=== PATIENT | female | born 2005 | race Two or more races ===

== ENCOUNTER 2023-10-21 15:21 | Emergency (ER) | payer OTHER ==
[~2023-10-21] VITALS: Ht 160 cm; Wt 65.9 kg
[2023-10-21 16:26] LABS: Basophils # (auto) 0 10 ^3/uL (0-0.2); Basophils % (auto) 0.2 % (0.0-2.0); Eosinophils # (auto) 0.1 10 ^3/uL (0-0.8); Eosinophils % (auto) 0.4 % (0.0-7.0); Hematocrit 37.1 % (36.0-46.0); Hemoglobin 12.4 g/dL (12.2-16.2); Lymphocytes # (auto) 1.2 10 ^3/uL (0.4-5.4); Lymphocytes % (auto) 9.7 % (10.0-50.0); Mean Corpuscular Hemoglobin 29.4 pg (28.0-32.0); Mean Corpuscular Hgb Conc. 33.4 g/dL (32.0-36.0); Mean Corpuscular Volume 87.9 fL (80.0-100.0); Monocytes # (auto) 0.5 10 ^3/uL (0-1.3); Monocytes % (auto) 3.9 % (0.0-12.0); Neutrophils # (auto) 10.8 10 ^3/uL (1.6-8.6); Neutrophils % (auto) 85.8 % (37.0-80.0); Red Blood Cells 4.23 10^6/uL (4.0-5.20); Red Cell Distribution Width 14.7 % (11.8-14.3); White Blood Cell 12.5 10^3/uL (4.4-10.8)
[2023-10-21 16:39] LABS: Anion Gap 8 (5-15); Carbon Dioxide 25 mmol/L (20-30); Chloride 102 mmol/L (98-107); Potassium 3.8 mmol/L (3.5-5.1); Sodium 135 mmol/L (136-145)
[2023-10-21 16:40] LABS: Calcium 10.1 mg/dL (8.7-10.4)
[2023-10-21 16:45] LABS: BUN/Creatinine Ratio 10.3 (10.0-20.0); Blood Urea Nitrogen 7 mg/dL (9-23); Glucose 107 mg/dL (74-106)
[2023-10-21 17:08] LABS: Urine Bacteria None Seen /hpf (None Seen)
[2023-10-21] MEDS: SODIUM CHLORIDE 0.9% 1,000 ML IV ONE (17:15)
[2023-10-21 17:22] LABS: Urine Blood 3+ /uL (Negative); Urine Clarity Turbid (Clear); Urine Color Light-Brown (Yellow); Urine Mucus FEW (None Seen); Urine Protein, UAD 1+ (Negative); Urine Specific Gravity 1.026 (1.001-1.035); Urine Urobilinogen Normal (Negative); Urine WBC 29 /hpf (0 - 5); Urine pH 6.5 (5.0-9.0)
[2023-10-21 18:49] VITALS: BP 99/48; PULSE 90; RESP 20; TEMP 98.2; O2SAT 96
== END 2023-10-21 19:59 | disposition home or self-care (01) ==
LOC: ER 15:21 → EDBD 15:21 → ER 19:59
DX: O03.9 Complete or unspecified spontaneous abortion without complication (principal); R10.2 Pelvic and perineal pain
CPT/HCPCS: 36415; 76801; 80048; 81001; 84702; 85025; 86850; 86900; 86901; 96360; 96361; 99284; J7030